=== PATIENT | female | born 1935 | race Caucasian/White ===

== ENCOUNTER → 2016-09-14 | Outpatient (CLI) | payer OTHER, MEDICARE ==
[~2016-09-14] VITALS: Ht 160 cm; Wt 70.3 kg
[~2016-09-14] MED LIST: ABILIFY 2 MG2 M1 PO; ADULT LOW DOSE81 MG PO; ATORVASTATIN CA20 MG PO; AZO CRANBERRY1 EAC1 PO; BACLOFEN 10MG T10 M1 PO; BACLOFEN RECTAL; BIOTIN1 MG PO; BUPIVICAINE; BUSPIRONE HCL5 MG PO; CALTRATE-600 W1 EACH PO; CEFDINIR300 MG PO; CENTRUM SILVER1 EAC4 PO; CENTRUM TABLET1 EACH PO; CLONIDINE 2; COLACE100 MG PO; COZAAR 25 MG TA25 M1 PO; CRANBERRY400 M1 PO; CRANBERRY400 MG PO; CYMBALTA30 MG PO; CYMBALTA60 MG PO; DESYREL100 MG PO; DESYREL50 MG PO; DIFLUCAN150 MG PO; DILAUDID 2 MG TA2 MG PO; DILAUDID IT; DILAUDID4 MG PO; DSS PO; ENOXAPARIN80 MG/0.1 SUBQ; FENTANYL PA12 MCG/H1 TP; FENTANYL PA12 MCG/HR TP; FENTANYL PA25 MCG/HR TP; FENTANYL PA50 MCG/HR TP; FENTANYL PATCH75 MCG TP; FENTANYL PATCH75 MCG TRANSDERM; FISH OIL 1,2001 EAC5 PO; FORTEO750 MCG/3 SUBQ; HYDROCODON-ACE1 EAC4 PO; HYDROCODON-ACE1 EAC5 PO; HYDROMORPHONE; HYOPHEN TABLET1 EACH PO; HYOSCYAMINE0.125 MG PO; IBUPROFEN 200200 M1 PO; INTRATHECAL MED; IRON325 M1 PO; IRON325 PO; JUVEN PACKET1 EACH PO; LASIX 20 MG TAB20 MG PO; LEVAQUIN 500 M500 M2 PO; LEXAPRO 10 MG T10 M1 PO; LIDODERM 5%1 PATC1 TD; LISINOPRIL-HCT1 EACH PO; METHADONE HCL 110 M1 PO; MOBIC15 MG PO; MOBIC7.5 MG PO; MYRBETRIQ50 MG PO; NEURONTIN 300300 M1 PO; NORCO 10-325 T1 EACH PO; NORCO 5-325 TA1 EACH PO; NORVASC5 MG PO; NUCYNTA50 MG PO; NYSTATIN15 G2; OMEPRAZOLE 20 M20 MG PO; ONDANSETRON HCL8 MG PO; OXYCODONE-ACET1 EAC2 PO; PRILOSEC40 MG PO; PROCRIT40000 UNIT; PROSTAT; PROZAC40 MG PO; RESTASIS1 EACH OPHTHALMIC; TIZANIDINE HCL4 MG PO; VALIUM2 MG; VALIUM5 MG PO; VITAMIN D2000 UNIT PO; VITAMIN E400 UNIT PO; VITAMINC500 PO; XARELTO10 M1 PO; ZINC50 M2 PO
--- NOTE | ~2016-09-14 | HPC ---
[facility] [address] [address] PAIN MANAGEMENT CONSULTATION Name: JUDSON HARDIN [facility] #: [id number] Admission: 09/14/16 Attend Phys: Benny Ribeiro MD Discharge: Date of : 39 Report #: [id number] THIS REPORT FOR: //name// CC: Benny Cortez MD Follow up visit for refill of intrathecal infusion pump. The patient returns to pain clinic today for refill of her intrathecal infusion pump. She continues to provide quite satisfactory pain relief for her. She also has pain in her right shoulder and would like a shoulder injection. I have provided this for her on several occasions, last injection about 2 months ago. She reports that it takes away substantial amount of pain and she is not a surgical candidate. PHYSICAL EXAMINATION: GENERAL: Today, she is pleasant, alert and oriented. She is not anxious or depressed. VITAL SIGNS: Her blood pressure is 133/55, heart rate is 80. BMI is 27.5. Pump is in the right lower quadrant, nontender. She remains in a wheelchair throughout her visit. She is able to stand, but needs assistance. IMPRESSION: 1. Chronic back pain status post multiple surgeries with lumbar fusion. 2. Management of intrathecal infusion pump with refill and reprogramming. 3. Osteoarthritis, right shoulder. 4. 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 PROCEDURE: Refill and reprogramming of intrathecal infusion pump. Skin was prepped with ChloraPrep. Skin was anesthetized with 22-gauge non-coring needle advanced in the pump. Old medication removed and discarded. Pump was refilled with a combination of medications including fentanyl, hydromorphone, and clonidine. Reprogramming session was performed. Refill interval is now 50 days. We will see her back on 11/03/2016. Her KARSTEN is 37 months. <ELECTRONICALLY SIGNED> By: Benny Ribeiro MD 10/07/16 1130 1629 2324 Benny Ribeiro MD /nt
[2016-09-14 12:15] VITALS: BP 133/55
== END | disposition home or self-care (01) ==
LOC: PAIN 07:20
DX: M54.5 Low back pain (principal); G89.29 Other chronic pain; M19.011 Primary osteoarthritis, right shoulder; C92.10 Chronic myeloid leukemia, BCR/ABL-positive, not having achieved remission

== ENCOUNTER → 2016-12-14 | Outpatient (CLI) | payer OTHER, MEDICARE ==
[~2016-12-14] VITALS: Ht 162.6 cm; Wt 70.3 kg
--- NOTE | ~2016-12-14 | HPC ---
[facility] [address] [address] PAIN MANAGEMENT CONSULTATION Name: JUDSON HARDIN [facility] [id number] Admission: 12/14/16 Attend Phys: Benny Ribeiro MD Discharge: Date of : 37 Report #: [id number] THIS REPORT FOR: //name// CC: Benny Cortez DATE OF SERVICE: 12/14/2016 TYPE OF REPORT: Followup visit for management of intrathecal infusion pump. HISTORY OF PRESENT ILLNESS: She returns to pain clinic today for routine visit for refill of intrathecal infusion pump. We discussed why she comes so frequently. She is at a pretty high dose and I cannot concentrate her medication further. Today, she states that her pain is doing quite well. She has had a previous shoulder injection, just recently and I have agreed to repeat her shoulder injection today, but we are not going to use steroid. We will see if she gets duration of response. On physical exam, her shoulders are only complaint today. She states it is severe and limits all of her activities of daily living, which were performed over the right shoulder. She scores that pain is a 9. PHYSICAL EXAMINATION: GENERAL: Klaudia 81-year-old female. VITAL SIGNS: Blood pressure 155/66, heart rate 73, BMI is 26.6. MUSCULOSKELETAL: Pain is tender to the touch and pain with internal and external rotation as well as abduction. She has pain that radiates through the deltoid and down into the forearm. IMPRESSION: 1. Chronic intractable pain with severe osteoarthritis, right shoulder. 2. Chronic back pain, status post multiple back surgeries with lumbar fusion. 3. Chronic myelocytic leukemia followed by Dr. Cortez. 4. Management of intrathecal infusion pump with reprogramming and refill today. RECOMMENDATIONS: A shoulder injection. PROCEDURE #1: Skin was prepped with ChloraPrep. Skin anesthetized and a 25-gauge needle gently injected and advanced into the shoulder. I then injected a total of 8 mL of 0.5% bupivacaine and the needle was removed. PROCEDURE #2: Refill and reprogram of an intrathecal infusion pump. DESCRIPTION OF PROCEDURE: Skin was prepped with ChloraPrep and skin was [facility] [address] [place] [address] PAIN MANAGEMENT CONSULTATION Name: LASHAWNJUDSON Room #: REG [facility] [id number] Admission: 12/14/16 Attend Phys: Benny Ribeiro MD Discharge: Date of : 37 Report #: [id number] anesthetized 22-gauge non-coring needle advanced in the intrathecal pump. Old medication removed and discarded. Pump was then refilled with a combination of fentanyl, hydromorphone and clonidine. Reprogramming session was then performed. Her dose remains high with hydromorphone dose at 10.6, clonidine 354 and fentanyl 106. Her KARSTEN is 34 months and her current reservoir will allow for about 49 days on this current infusion. We plan to see her back in January. By: [id number] Benny Ribeiro MD /guevara
[2016-12-14 13:30] VITALS: BP 155/66
== END | disposition home or self-care (01) ==
LOC: PAIN 07:08
DX: M19.011 Primary osteoarthritis, right shoulder (principal); M54.5 Low back pain; G89.29 Other chronic pain; C93.10 Chronic myelomonocytic leukemia not having achieved remission

== ENCOUNTER → 2017-02-01 | Outpatient (CLI) | payer OTHER, MEDICARE ==
[~2017-02-01] VITALS: Ht 162.6 cm; Wt 70.3 kg
--- NOTE | ~2017-02-01 | HPC ---
[facility] [address] [place] [address] PAIN MANAGEMENT CONSULTATION Name: JUDSON HARDIN Room #: REG [facility].#: [id number] Admission: 02/01/17 Attend Phys: Benny Ribeiro MD Discharge: Date of : 37 Report #: [id number] THIS REPORT FOR: //name// CC: Benny Cortez DATE OF REGISTRATION: 02/01/2017. Followup visit for chronic back pain with osteoarthritis, right shoulder. HISTORY OF PRESENT ILLNESS: The patient returns to pain clinic today for refill of her intrathecal infusion pump. She reports that she recently fell fracturing her right shoulder. It was treated conservatively without surgery and she has some decreased range of motion. Unfortunately, this is a painful shoulder this been bothering her more over the course of the last few years. She has severe back pain as well related to multiple back surgeries and a lumbar fusion. She has chronic myelocytic leukemia is followed by Dr. Cortez. She reports again today for this second visit on rather pain is really doing quite well with her medication. She does not need any adjustment. She has been tried to avoid system narcotics. She has been getting out and going on some of the trips available through her living situation. PHYSICAL EXAMINATION: VITAL SIGNS: Blood pressure is 138/82, heart rate is 80. EXTREMITIES: She is in a wheelchair. She is able to stand, but has bilateral lower extremity weakness. She has significant pain across the low back with flexion and extension. She has tenderness over her scars. She has pain also in her right shoulder with limited range of motion with abduction, internal and external rotation. IMPRESSION: 1. Chronic intractable back pain status post lumbar fusion. 2. Management of intrathecal infusion pump with refill today. 3. Osteoarthritis, right shoulder, also recent fracture. 4. Chronic myelocytic leukemia followed by Dr. Estela Cortez. PROCEDURE: Refill of intrathecal infusion pump. Skin was prepped with ChloraPrep, skin anesthetized and a 22-gauge non-coring needle advanced in the pump. Old medication removed and discarded. Pump was refilled with 19.5 mL of hydromorphone, clonidine and fentanyl and reprogramming session performed. She still has about 2.5-3 years on her intrathecal pump, her [facility] [address] [place] [address] PAIN MANAGEMENT CONSULTATION Name: JUDSON HARDIN Room #: [facility]#: [id number] Admission: 02/01/17 Attend Phys: Benny Ribeiro MD Discharge: Date of : 37 Report #: [id number] second. The programming information was checked, copy was given the patient and she was discharged with a followup visit scheduled in about 3 months for refill. <ELECTRONICALLY SIGNED> By: Benny Ribeiro MD 02/01/17 1714 1239 1313 Benny Ribeiro MD /nt
[2017-02-01 11:10] VITALS: BP 136/50
== END | disposition home or self-care (01) ==
LOC: PAIN 06:59
DX: M54.5 Low back pain (principal); C92.90 Myeloid leukemia, unspecified, not having achieved remission; G89.29 Other chronic pain; M19.011 Primary osteoarthritis, right shoulder; Z87.81 Personal history of (healed) traumatic fracture; Z98.890 Other specified postprocedural states; Z88.2 Allergy status to sulfonamides; Z88.8 Allergy status to other drugs, medicaments and biological substances

== ENCOUNTER → 2017-03-22 | Outpatient (CLI) | payer OTHER, MEDICARE ==
[~2017-03-22] VITALS: Ht 162.6 cm; Wt 71.2 kg
[~2017-03-22] MED LIST changes: +TRAMADOL 50 MG50 MG PO
--- NOTE | ~2017-03-22 | HPC ---
[facility] [place] [address] PAIN MANAGEMENT CONSULTATION Name: JUDSON HARDIN Room #: REG [facility].#: [id number] Admission: 03/22/17 Attend Phys: Benny Ribeiro MD Discharge: Date of : 37 Report #: [id number] THIS REPORT FOR: //name// CC: Benny Cortez DATE OF SERVICE: 03/22/2017 CONTINUATION PROCEDURE: Refill of intrathecal infusion pump. Skin was prepped with ChloraPrep. Skin anesthetized and a 22-gauge non-coring needle advanced in the pump. Old medication removed and discarded. Pump refilled with hydromorphone 30, fentanyl 300, clonidine 1000 mcg/mL. A reprogramming session was performed. Current numbers are hydromorphone 10.6 per day, clonidine 354 per day, fentanyl 106 mcg per day. Estimated reserve is 31 months. Her refill interval is 50 days and her low reservoir alarm date is 05/11/2017. I have also renewed for her a small amount of breakthrough medication as a trial of tramadol 50 mg 1 tablet q. 8 hours. This is a new medication for her. She will evaluate and report back. Importance of safeguarding medications reviewed. <ELECTRONICALLY SIGNED> By: Benny Ribeiro MD 03/26/17 1723 1618 1738 Benny Ribeiro MD /nt
--- NOTE | ~2017-03-22 | HPC ---
[facility] [place] [address] PAIN MANAGEMENT CONSULTATION Name: JUDSON HARDIN Room #: REG [facility].#: [id number] Admission: 03/22/17 Attend Phys: Benny Ribeiro MD Discharge: Date of : 37 Report #: [id number] THIS REPORT FOR: //name// CC: Benny Cortez MD DATE OF SERVICE: 03/22/2017 Followup visit for management of intrathecal infusion pump. The patient returns to pain clinic today for refill of intrathecal infusion pump. She has chronic pain in her back; also, her shoulders are most troublesome issue at this time. She has severe osteoarthritis of the right shoulder and has had a recent fracture as well. She suffers from chronic myelocytic leukemia followed by Dr. Estela Cortez. The intrathecal pump has done a very nice job of helping her low back pain, but we just really cannot seem to get her controlled very well with the pump for her shoulder. She saw an orthopedic surgeon who provided an injection into her shoulder a few weeks ago, but this has not helped very much. She scores her pain there in her shoulders at about 8/10. Back pain is 0. She is in a wheelchair much of the time. MEDICATIONS: Reviewed, trazodone, atorvastatin, tizanidine, Lexapro, gabapentin, hydromorphone, ____, BuSpar, Myrbetriq, levothyroxine, magnesium oxide, DDS, ibuprofen, Caltrate, multivitamins, omeprazole, iron, vitamin C, vitamin D3, zinc and fish oil. PHYSICAL EXAMINATION: Blood pressure is 143/47, heart rate 74, respirations 14. BMI is 26.9. She moves from a sitting to standing position, but have to sit right back down, she has tenderness across her low back. Marked restrictions in range of motion of the right shoulder noted. Tenderness throughout. IMPRESSION: 1. Chronic back pain status post lumbar fusion, well controlled. 2. Osteoarthritis, right shoulder remains severe. 3. Chronic myelocytic leukemia followed by Dr. Estela Cortez. 4. Management of intrathecal infusion pump with refill scheduled for today. PROCEDURE: Skin was prepped with ChloraPrep. Skin anesthetized and a 22-gauge non-coring needle advanced in the pump. Old medication removed and discarded. Pump was refilled with a total of 20 mL of 0.5% lidocaine mixed with ____. [address] [address] PAIN MANAGEMENT CONSULTATION Name: JUDSON HARDIN Room #: REG [facility]#: [id number] Admission: 03/22/17 Attend Phys: Benny Ribeiro MD Discharge: Date of : 37 Report #: [id number] DICTATION ENDS HERE <ELECTRONICALLY SIGNED> By: Benny Ribeiro MD 03/26/17 1725 1616 1715 Benny Ribeiro MD /nt
[2017-03-22 12:44] VITALS: BP 143/47
== END | disposition home or self-care (01) ==
LOC: PAIN 11:02
DX: M54.5 Low back pain (principal); G89.29 Other chronic pain; C92.10 Chronic myeloid leukemia, BCR/ABL-positive, not having achieved remission; M19.011 Primary osteoarthritis, right shoulder; Z98.890 Other specified postprocedural states; Z79.899 Other long term (current) drug therapy; Z88.2 Allergy status to sulfonamides; Z88.8 Allergy status to other drugs, medicaments and biological substances

== ENCOUNTER → 2017-05-03 | Outpatient (CLI) | payer OTHER, MEDICARE ==
[~2017-05-03] MED LIST changes: -DESYREL50 MG PO; +LEVOTHYROXINE50 MCG PO; +TRAZODONE 150150 M1 PO
--- NOTE | ~2017-05-03 | HPC ---
[facility] [address] [place] [address] PAIN MANAGEMENT CONSULTATION Name: JUDSON HARDIN Room #: REG [facility] [id number] Admission: 05/03/17 Attend Phys: Benny Ribeiro MD Discharge: Date of : 37 Report #: [id number] THIS REPORT FOR: //name// CC: Benny Cortez DATE OF SERVICE: 05/03/2017 DATE OF SERVICE: 05/03/2017 Followup visit for chronic intractable low back pain and osteoarthritis. The patient returns to pain clinic today for refill of her intrathecal infusion pump. She has done well with intrathecal therapy. Her infusion is a combination of hydromorphone, clonidine and fentanyl. Her doses are relatively high, but her pain is well controlled and she is grateful for that. She does have pain in her shoulder, which has been resistant to intrathecal therapy and I have intermittently provided her with shoulder injections, which she has been grateful for. She has an upcoming 82th birthday. We discussed the upcoming plans for that event as she has family coming in. Today, her pain score is 0 in her back, but she has 9/10 pain in her shoulder. She has had 4 injections in the last 6 months. I have told her that I would like to hold off without giving her too much cortisone. These injections seem to help, but only for a very short time. She does not want more intervention. PHYSICAL EXAMINATION: She is quite pleasant today. Blood pressure is 149/58, heart rate 70, respirations 14, BMI is 34. She is in a wheelchair where I filled her intrathecal pump. IMPRESSION: 1. Low back pain with radiculopathy. 2. Osteoarthritis, left shoulder. 3. History of myelomonocytic leukemia. 4. Management of intrathecal infusion pump. PROCEDURE: Skin prepped with ChloraPrep. Skin was anesthetized and a 22-gauge non-coring needle advanced in the intrathecal pump. All medication removed and discarded. Pump was refilled with hydromorphone, clonidine and fentanyl. Daily dose is hydromorphone 10 mg, clonidine is 354 mcg and fentanyl 106 mcg. The new reservoir alarm date is 06/22/2017 and the KARSTEN of this pump is 30 months. This is her second intrathecal pump. [facility] [address] [place] [address] PAIN MANAGEMENT CONSULTATION Name: JUDSON HARDIN Room #: REG [facility].#: [id number] Admission: 05/03/17 Attend Phys: Benny Ribeiro MD Discharge: Date of : 37 Report #: [id number] Followup visit is scheduled in May. No new medications were written. By: [id number] Benny Ribeiro MD /nt
[2017-05-03 13:28] VITALS: BP 149/58
== END | disposition home or self-care (01) ==
LOC: PAIN 07:02
DX: Z45.1 Encounter for adjustment and management of infusion pump (principal); M54.16 Radiculopathy, lumbar region; M19.012 Primary osteoarthritis, left shoulder; Z85.6 Personal history of leukemia; G89.29 Other chronic pain; Z88.2 Allergy status to sulfonamides; Z88.0 Allergy status to penicillin; Z88.5 Allergy status to narcotic agent; Z88.1 Allergy status to other antibiotic agents; Z98.890 Other specified postprocedural states; Z79.899 Other long term (current) drug therapy

== ENCOUNTER → 2017-06-14 | Outpatient (CLI) | payer OTHER, MEDICARE ==
[~2017-06-14] VITALS: Ht 162.6 cm; Wt 74.8 kg
[~2017-06-14] MED LIST changes: +URIBEL CAPSULE1 EACH PO
--- NOTE | ~2017-06-14 | HPC ---
[facility] [address] [place] [address] PAIN MANAGEMENT CONSULTATION Name: JUDSON HARDIN [facility] #: [facility] [id number] Admission: 06/14/17 Attend Phys: Benny Ribeiro MD Discharge: Date of : 37 Report #: [id number] THIS REPORT FOR: //name// CC: Benny Cortez DATE OF SERVICE: 06/14/2017 Followup visit for chronic intractable pain and intrathecal infusion pump management, osteoarthritis right shoulder. She presents to the pain clinic today for refill of her intrathecal infusion pump. She continues to do very well. She has recently had her 82th birthday with a wonderful celebration. She is here today for refill of her intrathecal infusion pump and she would like another shoulder injection, which I provide for her about 3 times a year. Her last injection in our clinic was on 12/14/2016, so it has been about 6 months. She reports that her intrathecal infusion pump is working beautifully. She denies pain in her back and is grateful for the relief. Shoulder is another story, we have not been able to capture pain relief in the shoulder with the intrathecal pump despite the use of hydromorphone, clonidine and fentanyl. PHYSICAL EXAMINATION: She is pleasant, alert and oriented, without any signs of overmedication. Her eyes are bright and clear. Blood pressure is 176/70, heart rate 76. Examination of the shoulder reveals restricted motion in all planes. She has pain with active internal and external rotation, tenderness posteriorly. Examination of the back is negative for any pain. She is in a wheelchair, but is able to stand independently for a short time. IMPRESSION: 1. Chronic low back pain with radiculopathy, much improved with intrathecal infusion. 2. Osteoarthritis, right shoulder. 3. History of myelomonocytic leukemia. 4. Management of intrathecal infusion pump. 5. Management of oral medication for breakthrough and high risk medication under terms of an opioid agreement. Two procedures are required today. She will receive a right shoulder injection as we performed in the past and I will refill and reprogram her intrathecal infusion pump. PROCEDURE #1: Injection right shoulder. [facility] [address] [place] [address] PAIN MANAGEMENT CONSULTATION Name: JUDSON HARDIN Room #: REG [facility]#: [id number] Admission: 06/14/17 Attend Phys: Benny Ribeiro MD Discharge: Date of : 37 Report #: [id number] With the patient in sitting position, skin was prepped with ChloraPrep. Skin was anesthetized with a 27-gauge needle and 1% lidocaine. I gently advanced a 2-inch 25-gauge needle into the shoulder capsule and after negative aspiration, I injected a total of 4 mL of 0.5% bupivacaine mixed with 40 mg triamcinolone. Needle was removed. She tolerated the procedure well. There were no complications. PROCEDURE #2: Refill and reprogramming of intrathecal infusion pump. Skin was prepped with ChloraPrep. Skin was anesthetized and a 22-gauge non-coring needle advanced into the intrathecal pump. Old medication was removed and discarded. We expected 3.9 mL and that is what we retrieved roughly and it was discarded. ____ pump was then refilled with 19 mL of hydromorphone, clonidine and fentanyl and a reprogramming session was performed for a daily dose of 10.6 mg of hydromorphone, 354 mcg of clonidine, 106 mcg of fentanyl. Her low reservoir alarm date is now 05/31/2017 and I will see her back in the clinic for refill at that time. No medications were ordered today. She is doing fine. She does not need any additional breakthrough medication. Followup visit as needed. <ELECTRONICALLY SIGNED> By: Benny Ribeiro MD 06/15/17 1322 1555 1838 Benny Ribeiro MD /nt
[2017-06-14 12:55] VITALS: BP 116/52
== END | disposition home or self-care (01) ==
LOC: PAIN 07:09
DX: M17.11 Unilateral primary osteoarthritis, right knee (principal); G89.29 Other chronic pain; M54.10 Radiculopathy, site unspecified; C93 Monocytic leukemia

== ENCOUNTER → 2017-09-10 | Outpatient (CLI) | payer OTHER, MEDICARE ==
[~2017-09-10] VITALS: Ht 160 cm; Wt 74.8 kg
[~2017-09-10] MED LIST changes: +DILAUDID 4 MG TA4 M1 PO; +DURAGESIC1 EAC4 TRANSDERM; +KEFLEX500 M1 PO; +PROLIA60 MG/1 ML; +XANAX 0.5 MG0.5 M1 PO; +XANAX 0.5 MG0.5 MG PO
--- NOTE | ~2017-09-10 | HPC ---
[facility] [address] [place] [address] PAIN MANAGEMENT CONSULTATION Name: JUDSON HARDIN Room #: REG [facility].#: [id number] Admission: 09/10/17 Attend Phys: Benny Ribeiro MD Discharge: Date of : 37 Report #: [id number] THIS REPORT FOR: //name// CC: Benny Cortez MD DATE OF SERVICE: 09/10/2017 Followup visit for chronic intractable pain and management of intrathecal infusion pump. The patient returns to the pain clinic today for refill of her intrathecal infusion pump. Her back pain is essentially gone. Her primary complaints are in her neck and radiating into her right arm and shoulder. She has an appointment with Dr. Gucci Martins to assess. I think there is a good possibility that she has cervical radiculopathy in addition to right shoulder osteoarthritis. She has responded only modestly to injections in the right shoulder. She might benefit from a cervical epidural injection. Overall, she is quite pleased with the pain relief that she is getting from her intrathecal pump. Her doses are quite high. She is on hydromorphone, clonidine and fentanyl, but it is doing the job. We are seeing a 45-day interval to refill her intrathecal pump. PQRS reviewed. She follows with Dr. Cortez for a number of conditions including hypertension. All medications were reviewed and reconciled. She has osteoarthritis of the right shoulder. She does not use tobacco. She does take supplementary opioid analgesics under terms of written opioid agreement. She is cautious with her use and we reviewed the CDC guidelines. She is a fall risk and is in a wheelchair. She needs to be cautious with all transfers and mobility. Medications are provided for her under terms of the agreement are tramadol 50 mg. PHYSICAL EXAMINATION: GENERAL: She is bright and pleasant, no signs of depression today. VITAL SIGNS: Her blood pressure is 163/79, heart rate 66, respirations are 16 and O2 sat 94. Her BMI is 29.2. MUSCULOSKELETAL: She is in a wheelchair and has difficulty with standing. She has pain across her low back and into her legs with radiculopathy. The right shoulder shows tenderness with all range of motion. She has increasing pain radiating down into the right arm and C6-C7 distribution with neck extension. 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 IMPRESSION: 1. Chronic low back pain with radiculopathy. [facility] [address] [place] [address] PAIN MANAGEMENT CONSULTATION Name: JUDSON HARDIN Room #: REG BILL [place]#: [id number] Admission: 09/10/17 Attend Phys: Benny Ribeiro MD Discharge: Date of : 39 Report #: [id number] 2. Cervicalgia radiating to the right shoulder, which may be cervical radiculopathy. 3. Osteoarthritis of the right shoulder. 4. Management of oral medication tramadol for breakthrough. 5. Management of intrathecal infusion pump with refill. PROCEDURE: Skin was prepped with ChloraPrep. Skin anesthetized and a 22-gauge non-coring needle advanced in the pump. Old medication removed and discarded. Pump was refilled with hydromorphone, clonidine and fentanyl. Daily dose will be hydromorphone 10.6, clonidine 355, fentanyl 106 mcg per day. Her low reservoir alarm is now 49 days on 10/29. Her estimated reserve on the battery is 26 months. I told her that next time she had her pump replaced, we should replace it with a 40 mL pump to lengthen her refill interval up to 90 days. <ELECTRONICALLY SIGNED> By: Benny Ribeiro MD 10/24/17 1640 1644 0420 Benny Ribeiro MD /nt
[2017-09-10 14:47] VITALS: BP 163/79
== END | disposition home or self-care (01) ==
LOC: PAIN 07:08
DX: Z45.1 Encounter for adjustment and management of infusion pump (principal); G89.29 Other chronic pain; M54.16 Radiculopathy, lumbar region; M54.12 Radiculopathy, cervical region; M19.011 Primary osteoarthritis, right shoulder; I10 Essential (primary) hypertension; Z79.891 Long term (current) use of opiate analgesic; Z88.2 Allergy status to sulfonamides; Z88.8 Allergy status to other drugs, medicaments and biological substances; Z79.899 Other long term (current) drug therapy; Z98.890 Other specified postprocedural states

== ENCOUNTER → 2017-10-25 | Outpatient (CLI) | payer OTHER, MEDICARE ==
[~2017-10-25] VITALS: Ht 160 cm; Wt 74.8 kg
--- NOTE | ~2017-10-25 | HPC ---
[facility] [address] [place] [address] PAIN MANAGEMENT CONSULTATION Name: JUDSON HARDIN [facility] #: [facility] [id number] Admission: 10/25/17 Attend Phys: Benny Ribeiro MD Discharge: Date of : 39 Report #: [id number] THIS REPORT FOR: //name// CC: Benny Cortez DATE OF SERVICE: 10/25/2017 Followup visit for management of intrathecal infusion pump and osteoarthritis of the right shoulder. The patient is here today for refill of her intrathecal pump and has asked if I will inject her right shoulder, which has been helpful in the past. She has severe osteoarthritis there. She is in good spirits today. Pleasant, alert and oriented. Her impact pain score is at 33/70. This is pretty good score for the patient. We have seen her at higher levels in the past. Most interference is due to movement and walking. Her enjoyment of life score is 5/10 that is an improvement. She seems to be resolved to her condition. Also reviewed her opioid risk tool. I provided medications for her under terms of that agreement. Her intrathecal pump is infusing hydromorphone, clonidine and fentanyl. She has a PTM device. PQRS review shows that she is under treatment of Dr. Cortez for a number of conditions including hypertension and she also has osteoarthritis. Her worst joint is her shoulder where she requested injection treatment of that joint today. She has a history of hypertension under treatment. Her BMI is 29.2. She is using a walker and although she has not fallen in the last 3 months, she does need help standing and walking. Her opioid agreement has been signed on more than one occasion. It is noted that her right shoulder is painful to internal and external rotation. There is crepitus there. Previous x-ray does demonstrate significant osteoarthritis. IMPRESSION: 1. Chronic intractable pain syndrome, low back pain with radiculopathy. 2. Osteoarthritis involving the right shoulder. 3. Cervicalgia. 4. Management of oral medication tramadol for breakthrough. 5. Management of intrathecal pump with refill and reprogramming. PROCEDURE: [facility] [address] [place] [address] PAIN MANAGEMENT CONSULTATION Name: JUDSON HARDIN Room #: REG [facility]#: [id number] Admission: 10/25/17 Attend Phys: Benny Ribeiro MD Discharge: Date of : 37 Report #: [id number] 1. Refill and reprogramming. Skin was prepped with ChloraPrep and anesthetized. A 22-gauge non-coring needle advanced in the pump. Old medication removed and discarded. We expected 2.3 and retrieved exactly that amount. Pump was refilled with clonidine, fentanyl and hydromorphone and a reprogramming session was performed. Her daily dose maximum with use of PTM will be hydromorphone 10.6, clonidine 354 and fentanyl 106. Her next refill is to be before 12/13/2017. 2. Right shoulder injection. Skin was prepped with ChloraPrep and a 25-gauge needle was used to perform a gentle injection into the joint capsule. Needle was advanced gently into the joint and after negative aspiration, I injected 4 mL of 0.5% bupivacaine mixed with 40 mg of triamcinolone. She tolerated the procedure well and was observed for 45 minutes and discharged. Follow up as needed. <ELECTRONICALLY SIGNED> By: Benny Ribeiro MD 12/03/17 1408 1559 0141 Benny Ribeiro MD /nt
[2017-10-25 13:37] VITALS: BP 160/63
== END ==
LOC: PAIN 10-15 13:08
DX: G89.29 Other chronic pain (principal); M54.16 Radiculopathy, lumbar region; M19.011 Primary osteoarthritis, right shoulder; M54.2 Cervicalgia; Z79.899 Other long term (current) drug therapy; Z98.890 Other specified postprocedural states

== ENCOUNTER → 2017-12-06 | Outpatient (CLI) | payer OTHER, MEDICARE ==
[~2017-12-06] VITALS: Ht 160 cm; Wt 71.7 kg
[~2017-12-06] MED LIST changes: -DILAUDID 4 MG TA4 M1 PO; -DURAGESIC1 EAC4 TRANSDERM; -KEFLEX500 M1 PO; -PROLIA60 MG/1 ML; -XANAX 0.5 MG0.5 M1 PO; -XANAX 0.5 MG0.5 MG PO
--- NOTE | ~2017-12-06 | HPC ---
[facility] [address] [place] [address] PAIN MANAGEMENT CONSULTATION Name: JUDSON HARDIN [facility] #: [facility] [id number] Admission: 12/06/17 Attend Phys: Benny Ribeiro MD Discharge: Date of : 39 Report #: [id number] THIS REPORT FOR: //name// CC: Benny Cortez DATE OF SERVICE: 12/06/2017 Followup visit for management of intrathecal pump in the treatment of chronic low back pain and osteoarthritis of the right shoulder. The patient is here today for refill of her intrathecal infusion pump. We see her at regular intervals to do so. She also has a painful right shoulder, which I have treated with injections. She is here today just for the refill. She is upbeat and positive today as her first great grandchild is coming soon. She says that her pain is well controlled currently with the regimen of hydromorphone, clonidine and fentanyl, which will remain unchanged. Her pain score, however, despite these upbeat reports is a 7/10. Her PQRS shows that she has osteoarthritis primarily of the right shoulder. She also complains of some pain of the left shoulder, but it is much less. She has pain in her hips and knees consistent with degenerative changes. Her BMI is 28.0. Her medication in the pump has been quite satisfactory and that she is not receiving any additional opioids. Dr. Cortez sees her and provides all other medications. She is under treatment for hypertension. All medications were reviewed and reconciled. She has not fallen in the last 3 months, but is considered a fall risk using her walker. We have talked about the importance of safety in movements. PHYSICAL EXAMINATION: GENERAL: She is alert and oriented, in a wheelchair. VITAL SIGNS: Blood pressure is 150/62, heart rate 62 and respirations 14. MUSCULOSKELETAL: She has pain throughout the right shoulder with internal and external rotation and abduction. She has chronic discomfort across her low back. She has weakness bilaterally of the lower extremities when she stands. Her gait is antalgic. IMPRESSION: 1. Chronic intractable pain syndrome. Pain generators include low back with radiculopathy and osteoarthritis of the right shoulder. She has other diffuse osteoarthritis. 2. Management of high risk medication only tramadol for breakthrough pain. She does not need additional medication today. 3. Management of intrathecal infusion pump with refill and reprogramming [facility] [address] [place] [address] PAIN MANAGEMENT CONSULTATION Name: JUDSON HARDIN [facility] #: [facility] [id number] Admission: 12/06/17 Attend Phys: Benny Ribeiro MD Discharge: Date of : 39 Report #: [id number] session. PROCEDURE: Refill reprogramming. Skin was prepped with ChloraPrep and anesthetized. A 22-gauge non-coring needle advanced in the pump. Old medication was removed and discarded. Expected volumes correlated with medication retrieved. This was discarded in the usual fashion. The pump was refilled with hydromorphone, clonidine and fentanyl at previously described doses. Programming information then was entered into the pump and she will leave on hydromorphone 10.6 mg, clonidine 354 mcg, fentanyl 106 mcg with an KARSTEN of 23 months and a reservoir alarm date of 49 days. Program ____ was checked by myself and the nurse and she was given a copy as well for her own records and safe keeping. I plan to see her back in 2 months. By: [id number] Benny Ribeiro MD /nt
[2017-12-06 12:40] VITALS: BP 150/62
== END | disposition home or self-care (01) ==
LOC: PAIN 07:21
DX: Z45.1 Encounter for adjustment and management of infusion pump (principal); G89.4 Chronic pain syndrome; M54.16 Radiculopathy, lumbar region; M19.011 Primary osteoarthritis, right shoulder; Z79.891 Long term (current) use of opiate analgesic; Z88.2 Allergy status to sulfonamides; Z88.8 Allergy status to other drugs, medicaments and biological substances; Z79.899 Other long term (current) drug therapy; Z98.890 Other specified postprocedural states

== ENCOUNTER → 2018-02-12 | Outpatient (CLI) | payer OTHER, MEDICARE ==
[~2018-02-12] MED LIST changes: +KEFLEX500 M1 PO; +PROLIA60 MG/1 ML
== END ==
LOC: HYPER 06:51
DX: L89.313 Pressure ulcer of right buttock, stage 3 (principal); L89.150 Pressure ulcer of sacral region, unstageable; I87.2 Venous insufficiency (chronic) (peripheral); R54 Age-related physical debility; S81.801D Unspecified open wound, right lower leg, subsequent encounter; S81.802A Unspecified open wound, left lower leg, initial encounter; F41.9 Anxiety disorder, unspecified; F32.9 Major depressive disorder, single episode, unspecified; E78.5 Hyperlipidemia, unspecified; M19.90 Unspecified osteoarthritis, unspecified site; I73.9 Peripheral vascular disease, unspecified; M81.0 Age-related osteoporosis without current pathological fracture; Z86.711 Personal history of pulmonary embolism; Z87.891 Personal history of nicotine dependence; X58.XXXA Exposure to other specified factors, initial encounter; Y93.89 Activity, other specified; Y92.89 Other specified places as the place of occurrence of the external cause; Y99.8 Other external cause status

== ENCOUNTER → 2018-02-28 | Outpatient (CLI) | payer OTHER, MEDICARE | LOC: HYPER 07:06 | DX: L89.313 Pressure ulcer of right buttock, stage 3 (principal); L89.150 Pressure ulcer of sacral region, unstageable; I87.2 Venous insufficiency (chronic) (peripheral); K21.9 Gastro-esophageal reflux disease without esophagitis; E78.5 Hyperlipidemia, unspecified; M19.90 Unspecified osteoarthritis, unspecified site; I73.9 Peripheral vascular disease, unspecified; M81.0 Age-related osteoporosis without current pathological fracture; F41.9 Anxiety disorder, unspecified; F32.9 Major depressive disorder, single episode, unspecified; Z86.711 Personal history of pulmonary embolism; Z96.653 Presence of artificial knee joint, bilateral; Z87.891 Personal history of nicotine dependence ==

== ENCOUNTER → 2018-03-07 | Outpatient (CLI) | payer OTHER, MEDICARE ==
[~2018-03-07] VITALS: Ht 162.6 cm; Wt 72.6 kg
--- NOTE | ~2018-03-07 | HPC ---
[facility] [place] [address] PAIN MANAGEMENT CONSULTATION Name: JUDSON HARDIN Room #: REG [facility]#: [id number] Admission: 03/07/18 Attend Phys: Chepe Garcia DO Discharge: Date of : 37 Report #: [id number] THIS REPORT FOR: //name// CC: Estela Garcia The patient is an 82-year-old female typically seen by Dr. Benny Ribeiro for intractable chronic pain management with an intrathecal infusion pump. The patient has chronic intractable low back pain, lumbar spondylosis without myelopathy, history of osteoarthritis affecting multiple joints. She has been wheelchair bound for some time, has an intrathecal pump delivering fairly high dose opiate including hydromorphone 10.646 mg a day, fentanyl 106.46 mcg a day along with clonidine 354.9 mcg a day. She returns to pain clinic today for intrathecal pump refill. Ostensibly, she was planning on having a transaortic valve repair for aortic stenosis done in 5 days' time (03/12/2018) at [facility]. Unfortunately, the patient has developed sacral decubiti and with this lesion, she now has to put her TAVR procedure off for about 4 months. She is very frustrated by this delay in her needed therapy. She notes that this is compounded by the fact that she is expecting a great grandchild in about 4 months. She presents to pain clinic today for intrathecal pump refill, doing reasonably well with current medication. No changes were made today. She requested that I personally refill the pump, which I happily did. With the patient in a seated position in her wheelchair, though somewhat recumbent, we cleansed the area overlying the pump in the right lower quadrant. Sterile drape was applied. Skin wheal with Xylocaine was raised. Using a [employer] refill kit, the pump was accessed, aspirated residual contents (approximately 5 mL). Refilled with 20 mL of new injectate containing hydromorphone 30 mg per mL, clonidine 1000 mcg per mL and fentanyl 300 mcg per mL. Frequent aspiration showed easy return of injectate. Visual inspection showed no swelling or erythema at the pump site. Needle was removed. Area was cleansed and Band-Aids were applied. Pump was reprogrammed to deliver the same infusion rate with no changes. New refill low reservoir date is now 04/26/2018. We will have the patient follow up with Dr. Benny Ribeiro at that time. <ELECTRONICALLY SIGNED> By: Chepe Garcia DO 03/08/18 0829 1523 [id number] Chepe Garcia DO /nt
[2018-03-07 12:27] VITALS: BP 123/66
== END | disposition home or self-care (01) ==
LOC: PAIN 08:28
DX: Z45.1 Encounter for adjustment and management of infusion pump (principal); M47.817 Spondylosis without myelopathy or radiculopathy, lumbosacral region; M19.90 Unspecified osteoarthritis, unspecified site; Z98.890 Other specified postprocedural states

== ENCOUNTER → 2018-03-13 | Outpatient (CLI) | payer OTHER, MEDICARE | LOC: HYPER 06:43 | DX: L89.150 Pressure ulcer of sacral region, unstageable (principal); L89.313 Pressure ulcer of right buttock, stage 3; I87.2 Venous insufficiency (chronic) (peripheral); I73.9 Peripheral vascular disease, unspecified; E78.5 Hyperlipidemia, unspecified; M19.90 Unspecified osteoarthritis, unspecified site; M81.0 Age-related osteoporosis without current pathological fracture; F41.9 Anxiety disorder, unspecified; F32.9 Major depressive disorder, single episode, unspecified; Z96.653 Presence of artificial knee joint, bilateral; Z86.711 Personal history of pulmonary embolism; Z87.891 Personal history of nicotine dependence ==

== ENCOUNTER → 2018-03-26 | Outpatient (CLI) | payer OTHER, MEDICARE | LOC: HYPER 07:04 | DX: T81.30XD Disruption of wound, unspecified, subsequent encounter (principal); L89.314 Pressure ulcer of right buttock, stage 4; I87.2 Venous insufficiency (chronic) (peripheral); R54 Age-related physical debility; F41.9 Anxiety disorder, unspecified; F32.9 Major depressive disorder, single episode, unspecified; E78.5 Hyperlipidemia, unspecified; M19.90 Unspecified osteoarthritis, unspecified site; K21.9 Gastro-esophageal reflux disease without esophagitis; I73.9 Peripheral vascular disease, unspecified; M81.0 Age-related osteoporosis without current pathological fracture; Z87.891 Personal history of nicotine dependence; Z86.711 Personal history of pulmonary embolism; Y83.8 Other surgical procedures as the cause of abnormal reaction of the patient, or of later complication, without mention of misadventure at the time of the procedure ==

== ENCOUNTER → 2018-06-13 | Outpatient (CLI) | payer OTHER, MEDICARE ==
[~2018-06-13] VITALS: Ht 162.6 cm; Wt 68.0 kg
[~2018-06-13] MED LIST changes: +DURAGESIC1 EAC4 TRANSDERM; +XANAX 0.5 MG0.5 MG PO
--- NOTE | ~2018-06-13 | HPC ---
[facility] [address] [place] [address] PAIN MANAGEMENT CONSULTATION Name: JUDSON HARDIN [facility] #: [facility] [id number] Admission: 06/13/18 Attend Phys: Benny Ribeiro MD Discharge: Date of : 37 Report #: [id number] THIS REPORT FOR: //name// CC: Benny Cortez MD DATE OF SERVICE: 06/14/2018 Followup visit for chronic intractable pain, multiple pain generators, management of intrathecal infusion pump and high risk medications. The patient is in the clinic today for followup and refill of her intrathecal infusion pump. She was in tears at her last visit in March, but today she is even more despondent. She has a large decubitus ulcer. She has, since last visit, had a temporary colostomy placed, which is disturbing her to no end. No amount of reassurance that the temporary colostomy would be reversed once her ulcer healed would placate her today. She is severely depressed and anxious as well as in a fairly significant discomfort despite the use of her intrathecal pump and additional medications. She is here today for refill. In addition to her intrathecal medication, she has been using tramadol 50 mg. No additional opioid medication for breakthrough. She is sleeping poorly. Her anxiety is a big part of that as well as her obvious depression. She has been in a rehabilitation hospital and the need for care round the clock with private issues such as hygiene is part of her despondency. She is receiving wound treatment there as well as antibiotics. Her pain is related to her multiple previous back surgeries with stabilization. She reports that with everything else going on that her back pain is minimized. Most of her pain is currently in her shoulders, which are severely arthritic. The need to move herself with her arms and inability to get around has placed a great deal of stress on these joints. She describes it as a shooting, numbness, sharp and constant. It is worse with more activities that she needs to do including simple things such as eating and hygiene. MEDICATIONS AND ALLERGIES: Reviewed and reconciled from the electronic medical record. PQRS: Demonstrates a history of osteoarthritis. She has lost weight with a BMI now of 25.7. She does not use tobacco or alcohol. Her pain intensity is 9-10. She is a fall risk and needs help with standing and walking. She is on no blood thinners. She is under treatment for hypertension. She has an intrathecal pump [address] [address] PAIN MANAGEMENT CONSULTATION Name: JUDSON HARDIN Room #: REG CLI [facility]#: [id number] Admission: 06/13/18 Attend Phys: Benny Ribeiro MD Discharge: Date of : 37 Report #: [id number] and is on an opioid therapy agreement through our clinic. IMPRESSION: 1. Severe depression. 2. Severe decubitus ulcer requiring temporary colostomy to allow for proper healing. 3. Chronic intractable pain, post-laminectomy syndrome with fusion. 4. Management of intrathecal and infusion pump with complex infusion. 5. Management of opioid medications for supplement. 6. Severe anxiety disorder. 7. Hypertension. 8. Interstitial cystitis. 9. Severe osteoarthritis involving both shoulders, hips and knees. PROCEDURE: Refill and reprogramming of intrathecal infusion pump. Skin was prepped with ChloraPrep and anesthetized, 22-gauge non-coring needle advanced into the intrathecal pump. Old medication was removed and discarded. Pump was refilled with a combination of clonidine, fentanyl and hydromorphone including a PTM device. Reprogramming session was performed. Her daily dose will be 10.6 mg of hydromorphone, 354 mcg of clonidine and 106 mcg of fentanyl. She has a PTM device, but is currently not using it at the facility. I have recommended that she be placed on a baseline Duragesic patch. I think that the additional pain relief will be comforting as well as may provide some supplement to her, other medications currently being used for anxiety and depression. I will follow up with her for pump refill in about 60 days. I offered as much emotional support as I could during her visit in our clinic. By: [id number] Benny Ribeiro MD /guevara
[2018-06-13 12:46] VITALS: BP 104/51
== END | disposition home or self-care (01) ==
LOC: PAIN 07:10
DX: Z45.1 Encounter for adjustment and management of infusion pump (principal); G89.29 Other chronic pain; M96.1 Postlaminectomy syndrome, not elsewhere classified; L89.159 Pressure ulcer of sacral region, unspecified stage; I10 Essential (primary) hypertension; M19.90 Unspecified osteoarthritis, unspecified site; N30.10 Interstitial cystitis (chronic) without hematuria; F32.9 Major depressive disorder, single episode, unspecified; F41.9 Anxiety disorder, unspecified; Z79.891 Long term (current) use of opiate analgesic; Z98.890 Other specified postprocedural states; Z79.899 Other long term (current) drug therapy; Z88.2 Allergy status to sulfonamides; Z88.8 Allergy status to other drugs, medicaments and biological substances

== ENCOUNTER → 2018-07-02 | Outpatient (CLI) | payer OTHER, MEDICARE ==
[~2018-07-02] VITALS: Ht 162.6 cm; Wt 68.0 kg
[~2018-07-02] MED LIST changes: +DILAUDID 4 MG TA4 M1 PO; +XANAX 0.5 MG0.5 M1 PO
--- NOTE | ~2018-07-02 | HPC ---
[facility] [address] [place] [address] PAIN MANAGEMENT CONSULTATION Name: JUDSON HARDIN Room #: REG [facility].#: [id number] Admission: 07/02/18 Attend Phys: Viki Lieberman Discharge: Date of : 37 Report #: [id number] THIS REPORT FOR: //name// CC: Viki Cortez MD DATE OF SERVICE: 07/02/2018 CHIEF COMPLAINT: Here for increased back pain and increase of her intrathecal pump. HISTORY OF PRESENT ILLNESS: The patient returns to the Pain Clinic today for an increase of her intrathecal pump. She tells me that she has been talking with Dr. Benny Ribeiro. He has increased some of her medications including her fentanyl patch, which she now takes fentanyl patch every 3 days and the strength is 25 mcg. The patient tells me that her pain is still pretty significant in her lower back and legs and rates it as 7/10. Dr. Ribeiro has collaborative care today and told us to increase her intrathecal pump by 15%. Hopefully, this will help through with her low back pain and right arm pain, neck pain, shoulder pain. She tells me that it is a constant, shooting, and numb pain as she uses her arms throughout the day. It is worse in her legs because she is in her wheelchair and having to move her legs significantly has increased her pain. Her appearance is quite disheveled today and she is very anxious. ALLERGIES: DEMEROL, TETRACYCLINE, SULFA, CLONAZEPAM, RIFAMPIN, NITROFURANTOIN, CIPRO, DEMEROL, VANCOMYCIN, AND CYMBALTA. CURRENT LIST OF MEDICATIONS: Xanax 0.5 every 6 hours as needed, Dilaudid 4 mg every 4 hours as needed, fentanyl patch 25 mcg every 72 hours, Lasix 20 mg daily, Keflex for dental work p.r.n., Prolia 60 mg, thyroid medicines 50 mcg, Cozaar 25 mg, fish oil 1200 mg daily, zinc 50 mg tablets, vitamin D3 daily, vitamin C daily, Centrum Silver daily, BuSpar 5 mg 3 times a day, Lexapro 20 mg daily, gabapentin 600 mg at bedtime, trazodone 150 mg at bedtime, cranberry soft gel daily, omeprazole 20 mg daily, atorvastatin 20 mg daily, calcium with vitamin D daily, and tizanidine 4 mg twice a day. PQRS: 1. 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 2. Height 5 feet 4 inches, weight 150, BMI is 25.7. 3. Vital signs 136/60, pulse is 104, oxygen sat is 97%, respirations are 16. 4. Pain score is 7/10. 5. Denies dizziness. Does need help walking and standing in a wheelchair today. She has fallen in the last 3 months, but has not had an injury. [address] [address] PAIN MANAGEMENT CONSULTATION Name: JUDSON HARDIN Room #: REG [facility]ILL [facility]#: [id number] Admission: 07/02/18 Attend Phys: Viki Lieberman Discharge: Date of : 39 Report #: [id number] 6. No blood thinners. 7. Does have a history of hypertension. 8. Opioid therapy greater than 6 weeks and has an opioid signed contract on the chart. 9. Her risk assessment tool is low. 10. Her functional assessment is 33/70. 11. Recreational drug use denies. She states she has never smoked and does not use alcohol. We did not check [place] or [place] PDMP today since the patient was here for an intrathecal pump adjustment. PHYSICAL EXAMINATION: GENERAL: The patient is very anxious, very quick to buffing wheel former machine today, in her wheelchair and unhappy that we are running behind for her walk-in appointment. MUSCULOSKELETAL: Having difficulty standing. Complains of pain in both shoulders, locally tender, pain on internal and external rotation. Pain also located in her lower extremities today. Able to raise legs, but decreased strength 3-4/5 bilaterally. IMPRESSION: 1. Chronic pain in low back with radiculopathy, post-laminectomy syndrome, osteoarthritis bilateral shoulders and management of intrathecal infusion pump. 2. Management of high risk medications. 3. Aortic stenosis. 4. Sacral decubitus ulcer. 5. Colostomy. PLAN: The patient is an add-on visit today, normally seen by Dr. Benny Ribeiro for her intrathecal pump management. Dr. Ribeiro has been talking to the patient due to her increase in pain and asked if we could increase her intrathecal pump by 15% today. The patient's pump was Dilaudid 10.6 mg a day, clonidine 359 mcg per day, and fentanyl 106 mcg per day. With the 15% increase that I did with Amor Marie RN checking her medications, we increased her Dilaudid to 12.25 mg per day, which in turn increased her clonidine to 408 mcg per day and fentanyl 122 mcg per day. The patient's new alarm date for refill will be 07/28/2018. The patient verbalized understanding that her alarm date has increased and will make an appointment accordingly. The patient was instructed to call if her pain has not been decreased some with all of her medication that she has taken. No prescriptions were given today since she had recently seen Dr. Ribeiro and received medications then. The patient is agreeable with care today, will be seen in followup by Dr. Ribeiro in July. The patient's care given in collaboration with Dr. Benny Ribeiro today. <ELECTRONICALLY SIGNED> By: Viki Lieberman 07/03/18 0714 1046 0052 Viki Lieberman /nt
[2018-07-02 10:05] VITALS: BP 136/60
== END | disposition home or self-care (01) ==
LOC: PAIN 09:05
DX: Z45.1 Encounter for adjustment and management of infusion pump (principal); M54.16 Radiculopathy, lumbar region; M96.1 Postlaminectomy syndrome, not elsewhere classified; G89.29 Other chronic pain; M19.011 Primary osteoarthritis, right shoulder; M19.012 Primary osteoarthritis, left shoulder; Z98.0 Intestinal bypass and anastomosis status; Z98.890 Other specified postprocedural states; Z79.899 Other long term (current) drug therapy; Z88.2 Allergy status to sulfonamides; Z88.8 Allergy status to other drugs, medicaments and biological substances; Z79.891 Long term (current) use of opiate analgesic